=== PATIENT | male | born 1930 | race Caucasian/White ===

== ENCOUNTER → 2016-08-10 | Outpatient (CLI) | payer MEDICARE, OTHER ==
[~2016-08-10] VITALS: Ht 177.8 cm; Wt 80.0 kg
[~2016-08-10] MED LIST: ASCO500 PO; BETA1TAB18 PO; CRAN500C2 PO; MILK200C4 PO; MULT-71 PO
[2016-08-10 10:40] VITALS: BP 144/77
== END | disposition home or self-care (01) ==
LOC: SRCNTR 10:28
PROVIDERS: ATTEND Hospitalist
DX: Z00.00 Encounter for general adult medical examination without abnormal findings (principal); Z85.46 Personal history of malignant neoplasm of prostate
CPT/HCPCS: G0463

== ENCOUNTER 2017-09-11 10:12 | Emergency (ER) | payer MEDICARE, OTHER ==
[~2017-09-11] VITALS: Ht 180.3 cm; Wt 79.5 kg
[~2017-09-11 10:12] MED LIST changes: -MULT-71 PO; +MULT1TAB70 PO
[2017-09-11 12:05] VITALS: BP 141/87
== END 2017-09-11 12:05 | disposition home or self-care (01) ==
LOC: EMS 10:13
DX: T16.1XXA Foreign body in right ear, initial encounter (principal); X58.XXXA Exposure to other specified factors, initial encounter; Y93.89 Activity, other specified; Y92.89 Other specified places as the place of occurrence of the external cause; Y99.8 Other external cause status; Z79.899 Other long term (current) drug therapy
CPT/HCPCS: 69200; 99284

== ENCOUNTER → 2018-11-18 | Outpatient (CLI) | payer MEDICARE, OTHER | END | disposition home or self-care (01) | LOC: RADPV 08:46 | PROVIDERS: ATTEND Internal Medicine Cardiovascular Disease | DX: I35.8 Other nonrheumatic aortic valve disorders (principal); I50.1 Left ventricular failure, unspecified | CPT/HCPCS: 93306 ==